=== PATIENT | male | born 1965 | race Caucasian/White ===

== ENCOUNTER 2019-04-20 10:03 | Inpatient (IN) | payer OTHER ==
[~2019-04-20] VITALS: Ht 182.9 cm; Wt 108.3 kg
[2019-04-20] VITALS (49 sets, daily range): BP systolic 90–144; BP diastolic 61–91
[2019-04-20] MEDS ORDERED: SODIUM BICARBONATE 8.4% INJ 50ML SYRINGE ONE ×2 (10:14→10:26)
[2019-04-20] MEDS ORDERED: SODIUM BICARBONATE 8.4 % INJ 50ML VIAL IV ONE ×3 (10:15→10:29)
--- NOTE | 2019-04-20 10:20 | NUR ---
Respiratory note: PT INTUBATED BY MD DEVRIES WITH ETT 8.0 SECURED WITH HOLISTER AT 26CM TEETH. ETT PLACEMENT CONFIRMED BY BILATERAL BREATH SOUNDS AND BILAT CHEST RISE, GOOD COLOR CHANGE ON CO2 DETECTOR. ROSC ACHIEVED. AFTER REVIEWING CXR, WITHREW ETT TO 24CM TEETH. PT PLACED ON VENT V17 PLUGGED INTO RED OUTLET AND PROPER O2 SOURCE WITH AMBU BAG AND MASK AVAILABLE AT BEDSIDE. BREATH SOUNDS BILAT COARSE CRACKLES. SUCTIONED LARGE AMOUNT THICK BLOODY SECRETIONS. SPUTUM SAMPLE COLLECTED AND SENT TO LAB. ALARMS SET AND AUDIBLE. PT SEDATED, UNRESPONSIVE. ABG TO FOLLOW. WILL CONTINUE TO MONITOR.
[2019-04-20] MEDS ORDERED: EPINEPHrine HCL INJECTION 4 MG in SODIUM CHL 0.9% 250 ML IV ONE (10:30)
[2019-04-20] MEDS: SODIUM BICARBONATE 50ML VIAL 150 ML in SOD CHL 0.45% 1,000 ML IV SCH ×3 (10:52→14:32)
[2019-04-20 11:03] LABS: Hematocrit 46.9 % (41.0-53.0); Mean Corpuscular Hemoglobin 31.2 pg (28.0-32.0); Mean Corpuscular Hgb Conc. 31.9 g/dL (32.0-36.0); Mean Corpuscular Volume 97.6 fL (80.0-100.0); Platelet Count (auto) 142 10^3/uL (140-450); Red Blood Cells 4.81 10^6/uL (4.5-5.90); Red Cell Distribution Width 13.9 % (11.8-14.3); White Blood Cell 23.7 10^3/uL (4.4-10.8)
[2019-04-20 11:13] LABS: Basophils % (manual) 0 (0.0-2.0); Blast Cells 0; Metamyelocytes % 0; Myelocytes % 0; Promyelocytes % 0; Reactive Lymphocytes 0
[2019-04-20] MEDS ORDERED: MIDAZOLAM DRIP 50 mg/50mL 50 ML IV ONE (11:17)
--- NOTE | 2019-04-20 11:25 | NUR ---
Respiratory note: VENT CHANGES PER DR. DEVRIES'S ORDERS AFTER REVIEWING ABG RESULTS. PT NOW ON AC 18, 650, +5, 70%. FOLLOW-UP ABG TO FOLLOW AFTER PT RETURNS FROM MENTAL HYGIENE CONSULTANT.
[2019-04-20 11:26] LABS: Albumin 2.5 g/dL (3.4-5.0); Calcium 8.1 mg/dL (8.5-10.1); Magnesium 2.8 mg/dL (1.6-2.6); Potassium 3.6 mmol/L (3.5-5.1)
[2019-04-20 11:33] LABS: Bilirubin, Total 0.4 mg/dL (0.2-1.0); Total Protein 5.5 g/dL (6.4-8.2)
[2019-04-20] MEDS ORDERED: ANGIOMAX 250 MG VIAL IV ONE (11:33)
[2019-04-20] MEDS ORDERED: SODIUM CHL 0.9% 50 ML ONE (11:34)
--- NOTE | 2019-04-20 11:35 | NUR ---
RT Transport Note: Patient transported to CT with OBED ORTIZ. Patient on lead embedded software engineer with alarms set and audible, ambu-bag/mask connected to O2 tank. Patient then transported to [facility] for procedure, with no adverse reaction noted. In laborer plumbing, connected patient to ventilator V3 plugged into red outlet and proper o2 source with ambu bag available at bedside. Transport completed without incident.
[2019-04-20 11:46] LABS: INR 1.37 (0.9-1.15); Partial Thromboplastin Time 39.8 sec (23.64-32.05)
[2019-04-20] MEDS ORDERED: IOHEXOL 350 MG/ML 100ML IJ ONE (11:49)
[2019-04-20] MEDS ORDERED: LIDOCAINE 2%HCL (LOCAL ANESTH.) INJ 20ML MDV ONE (11:49)
[2019-04-20] MEDS: MIDAZOLAM DRIP 50 mg/50mL 50 ML IV SCH ×4 (11:50→22:58)
[2019-04-20] MEDS ORDERED: IODIXANOL 320MG/ML 100ML BTL IV ONE (11:52)
[2019-04-20 12:21] LABS: Band Neutrophils % (manual) 3; Eosinophils % (manual) 1 (0-7); Lymphocytes % (manual) 46 (10.0-50.0); Monocytes % (manual) 8 (0-12)
[2019-04-20] MEDS ORDERED: PROPOFOL 100 ML IV ONE (12:26)
--- NOTE | 2019-04-20 12:45 | NUR ---
RT Transport Note: Patient transported from civil laboratory technician to ICU bed 101. Patient on color television console monitor with alarms set and audible, ambu-bag/mask connected to O2 tank. Upon arrival, patient placed on ventilator V3 plugged into red outlet, proper O2 source, with previous ordered settings. Ambu bag and mask available at bedside. Transport completed without incident. RNs Taryn and Mateusz at bedside. Will continue to monitor.
[2019-04-20] MEDS ORDERED: MORPHINE SULF INJ 2 MG/ML SYRINGE 1ML IV PRN (13:15)
[2019-04-20] MEDS ORDERED: VANCOMYCIN PER PHARMACY 0 MG IV SCH (13:15)
[2019-04-20] MEDS: SODIUM CHLORIDE 0.9% 1,000 ML IV SCH ×2 (13:15→23:15)
[2019-04-20] MEDS ORDERED: FAMOTIDINE INJECTION 40 MG in SODIUM CHL 0.9% 100 ML IV ONE (13:15)
[2019-04-20] MEDS ORDERED: ASPirin 81 mg TAB PO ONE (13:15)
[2019-04-20] MEDS ORDERED: CLOPIDOGREL 300 MG TAB PO ONE (13:15)
[2019-04-20] MEDS ORDERED: NITROGLYCERIN 0.4 MG SL TAB SL PRN (13:15)
[2019-04-20] MEDS ORDERED: MEPERIDINE HCL (25 MG/ML) 1ML VIAL IV PRN (13:30)
[2019-04-20] MEDS ORDERED: ASPirin-EC 81 mg tab PO ONE (13:38)
[2019-04-20] MEDS ORDERED: CLOPIDOGREL BISULFATE 75 MG TAB ONE (13:38)
[2019-04-20] MEDS ORDERED: FAMOTIDINE (10MG/ML) 2ML VL IV ONE (13:38)
[2019-04-20] MEDS: NOREPINEPHRINE 8 MG/250ML KIT 250 ML IV SCH (13:40)
[2019-04-20] MEDS ORDERED: DEXTROSE (50%) 50ML SYRG IV PRN (13:45)
--- NOTE | 2019-04-20 13:45 | NUR ---
MEHRANAR report received from OBED Mosqueda in starch factory laborer. See PX and interventions. Patient intubated and sedated. Addendum: 04/20/19 at 1839 by Taryn Caballero RN Patient received at 1350 from starch factory laborer. Addendum: 04/22/19 at 0743 by Taryn Caballero RN LEFT FEMORAL SITE ASSESSED AND NO HEMATOMA. PERCLOSE SUTURE COVERED WITH 2X2, SKIN SOFT WARM, DRY AND INTACT.
[2019-04-20] MEDS ORDERED: PIPERACILLIN-TAZOB 3.375GM 100 ML IV ONE (14:00)
--- NOTE | 2019-04-20 14:00 | NUR ---
Mehul ROMANO - admitted patient to the ICU. Several orders placed.
--- NOTE | 2019-04-20 14:15 | NUR ---
Place patient on Therapeutic hypothermia goal temp 32-34 degress Celcius. Will monitor temp.
--- NOTE | 2019-04-20 15:15 | NUR ---
AND DAUGHTER AT BEDSIDE- WENT OVER PLAN OF CARE FOR PATIENT. WENT OVER TREATMENTS, ie. HYPOTHERMIA AND ALL MEDICATIONS. VERBALIZED UNDERSTANDING.
[2019-04-20] MEDS: PROPOFOL 100 ML IV SCH ×3 (15:28→22:58)
[2019-04-20] MEDS ORDERED: EPINEPHrine HCL 250 ML IV ONE (15:35)
[2019-04-20] MEDS: ATRACURIUM BESYLATE 1,000 MG in D5W 5% 150 ML IV SCH (15:37)
--- NOTE | 2019-04-20 15:45 | NUR ---
Patient started on Atracurium for shivering -once shivering stops (keep on lowest dose possible).
--- NOTE | 2019-04-20 17:05 | NUR ---
Dr. Hilliard at bedside- spoke with family. CT head ordered for the morning.
--- NOTE | 2019-04-20 18:00 | NUR ---
TRAIN OF 4 PERFORMED FOR PATIENT: INITIALLY 4 TWITCHES - WENT UP UNTIL HE STOPPED SHIVERING, THEN WENT DOWN AGAIN SLOWLY. KEPT AT 3MCG KG/MIN LOWEST DOSE TO KEEP COMFORTABLE. PATIENT VS'S STABLE, TRENDING DOWN ON THE EPINEPHRINE. MAXED SEDATED ON DIPRIVAN AND VERSED FOR COMFORT.
[2019-04-20] MEDS: InsuLIN REG 1unit/0.01ml Soln (100units/ml) SC SCH ×2 (18:19→23:52)
[2019-04-20] MEDS: PIPERACILLIN-TAZOB 3.375GM 100 ML IV SCH ×2 (18:19→23:52)
[2019-04-20] MEDS: ACCU-CHEK COMFORT CURVE STRIP VI SCH ×2 (18:20→23:52)
[2019-04-20] MEDS: VANCOMYCIN 1,500 MG in D5W 5% 250 ML IV SCH (18:24)
--- NOTE | 2019-04-20 19:15 | NUR ---
OPEN ASSUMED CARE, FULL ASSESSMENT DONE; SEE INTERVENTIONS. THERAPEUTIC HYPOTHERMIA IN PROGRESS PER PROTOCOL, PT TEMP 33.1 CELSIUS. SEDATED ON PROPOFOL, VERSED, AND ATRACURIUM PER IV SPREADSHEET. TRAIN OF FOUR ASSESSED WITH 2/4 FACIAL TWITCHES NOTED; SEE IV SPREADSHEET FOR TITRATIONS. RIGHT FEM TLC ZOLL CATHETER IN PLACE, RIGHT AC 20 G PATENT AND INTACT. PERIPHERAL IVs X 2 DCd WITH CATHETER TIPS INTACT. LEFT GROIN ANGIO SITE ASYMPTOMATIC, RADIAL AND PEDAL PULSES STRONG AND PALPABLE. EPINEPHRINE GTT INFUSING PER IV SPREADSHEET. NS AND SODIUM BICARB GTT ALSO INFUSING PER IV SPREADSHEET. GARCIA DRAINING CLEAR YELLOW URINE TO GRAVITY, FLEXI-SEAL DRAINING LIQUID BROWN-MAROON STOOL TO GRAVITY. ORAL CARE AND REPOSITIONING DONE. VITAL SIGNS STABLE. CONTINUE CARE. Addendum: 04/20/19 at 2156 by Una Serrato RN NO SEIZURE ACTIVITY NOTED.
--- NOTE | 2019-04-20 19:23 | NUR ---
BEDSIDE REPORT GIVEN TO OBED FRANCIS.
--- NOTE | 2019-04-20 20:35 | NUR ---
FAMILY PT'S AND SON AT BEDSIDE, ALL QUESTIONS/CONCERNS ADDRESSED.
--- NOTE | 2019-04-20 21:20 | NUR ---
SEDATION VACATION HELD AT THIS TIME PT REMAINS ON PARALYTIC.
[2019-04-20] MEDS: FAMOTIDINE (10MG/ML) 2ML VL IV SCH (21:43)
--- NOTE | 2019-04-20 22:11 | NUR ---
TEMP CORE TEMP MAINTAINING 33.0-33.1 DEG CELSIUS. VITAL SIGNS STABLE WITH EPI CONTINUING TO INFUSE PER IV SPREADSHEET. FAMILY REMAINS AT BEDSIDE.
[2019-04-20] MEDS ORDERED: SODIUM BICARBONATE 8.4% INJ 50ML SYRINGE IV ONE (22:44)
[2019-04-20] MEDS ORDERED: AMIODARONE HCL (50 MG/ ML) 3 ML VIAL IV ONE (22:44)
[2019-04-20] MEDS ORDERED: EPINEPHrine HCL 1 MG/10 ML SYRG IV ONE (22:44)
[2019-04-20] MEDS ORDERED: CALCIUM CHLOR(10%) 100MG/ML 10ML SYRINGE IV ONE (22:44)
--- NOTE | 2019-04-20 23:08 | NUR ---
TRAIN OF FOUR TOF ASSESSED AT 10 mA; 2/4 FACIAL TWITCHES NOTED. NO SHIVERING OR SEIZURE ACTIVITY NOTED. ATRACURIUM CONTINUES TO INFUSE AT 3 MCG/KG/MIN PER IV SPREADSHEET. FAMILY REMAINS AT BEDSIDE; EDUCATION PROVIDED REGARDING TOF AND PARALYTIC, ALL QUESTIONS/CONCERNS ADDRESSED.
[2019-04-21] VITALS (106 sets, daily range): BP systolic 95–125; BP diastolic 50–76
[2019-04-21] MEDS ORDERED: EPINEPHrine HCL 250 ML IV ONE (01:05)
--- NOTE | 2019-04-21 01:25 | NUR ---
LEFT BULL I.O DCd, PRESSURE DSG APPLIED.
--- NOTE | 2019-04-21 03:15 | NUR ---
TRAIN OF FOUR TOF ASSESSED AT 10 mA; 4/4 FACIAL TWITCHES NOTED. NO SHIVERING OR SEIZURE ACTIVITY NOTED. ATRACURIUM CONTINUES TO INFUSE AT 3 MCG/KG/MIN PER IV SPREADSHEET.
[2019-04-21] MEDS: EPINEPHrine HCL 250 ML IV SCH (03:28)
[2019-04-21] MEDS: SODIUM BICARBONATE 50ML VIAL 150 ML in SOD CHL 0.45% 1,000 ML IV SCH (04:00)
[2019-04-21 04:07] LABS: Basophils # (auto) 0 uL; Eosinophils # (auto) 0 uL; Hematocrit 44.9 % (41.0-53.0); Hemoglobin 14.7 g/dL (13.5-17.5); Lymphocytes % (auto) 5.8 % (10.0-50.0); Mean Corpuscular Hemoglobin 31.2 pg (28.0-32.0); Mean Corpuscular Hgb Conc. 32.7 g/dL (32.0-36.0); Mean Corpuscular Volume 95.2 fL (80.0-100.0); Monocytes # (auto) 1.1 uL; Monocytes % (auto) 6.6 % (0.0-12.0); Neutrophils % (auto) 87.6 % (37.0-80.0); Platelet Count (auto) 183 10^3/uL (140-450); Red Blood Cells 4.72 10^6/uL (4.5-5.90); Red Cell Distribution Width 13.3 % (11.8-14.3); White Blood Cell 17.1 10^3/uL (4.4-10.8)
[2019-04-21 04:44] LABS: Albumin 2.7 g/dL (3.4-5.0); BUN/Creatinine Ratio 9.4; Calcium 7.3 mg/dL (8.5-10.1)
[2019-04-21 04:46] LABS: Bilirubin, Total 0.6 mg/dL (0.2-1.0); Total Protein 5.7 g/dL (6.4-8.2)
[2019-04-21 04:50] LABS: Potassium 2.2 mmol/L (3.5-5.1)
--- NOTE | 2019-04-21 04:53 | NUR ---
HOSPITALIST PAGED REGARDING AM LABS.
[2019-04-21] MEDS ORDERED: VANCOMYCIN 1GM/250ML 0 ML IV ONE (05:15)
--- NOTE | 2019-04-21 05:15 | NUR ---
HOSPITALIST/FAMILY ORDERS RECEIVED FOR POTASSIUM REPLACEMENT, SEE EMAR. UPDATE GIVEN TO PT'S AFTER PASSWORD PROVIDED.
[2019-04-21] MEDS: ACCU-CHEK COMFORT CURVE STRIP VI SCH ×5 (05:52→23:56)
[2019-04-21] MEDS: PIPERACILLIN-TAZOB 3.375GM 100 ML IV SCH ×4 (05:52→23:56)
[2019-04-21] MEDS: InsuLIN REG 1unit/0.01ml Soln (100units/ml) SC SCH ×5 (05:52→23:56)
[2019-04-21] MEDS: VANCOMYCIN 1,500 MG in D5W 5% 250 ML IV SCH ×2 (05:52→17:11)
[2019-04-21] MEDS: POTASSIUM CHL 20MEQ/100ML 100 ML IV SCH ×6 (05:52→18:32)
--- NOTE | 2019-04-21 07:10 | NUR ---
REPORT CARE ENDORSED TO OBED CONTRERAS.
--- NOTE | 2019-04-21 07:22 | NUR ---
TRAIN OF FOUR 2/4 TWITCHES ON 5 MA. PATIENT CURRENTLY ON ATRACURIUM AT 3 MCG/KG/MIN
--- NOTE | 2019-04-21 07:22 | NUR ---
SHIFT OPENING NOTE PATIENT ON MECHANICAL VENTILATOR, SEDATED WITH PROPOFOL, VERSED, AND ATRACURIUM, NO COUGH OR GAG REFLEX, PUPILS 2 EQUAL ROUND, NON REACTIVE TO LIGHT, LUNGS CLEAR AND DIMINISHED THROUGHOUT. RUST SECRETIONS OROPHARYNX, ABDOMEN ROUND AND SOFT, WITH FLEXISEAL WITH MINIMAL AMOUNTS OF BROWN LIQUID STOOL, OGT CLAMPED AT THIS TIME. GARCIA CATHETER DRAINING CLEAR, PALE URINE WITH BAG HUNG BELOW BLADDER, FREE OF KINKS, SC'DS BILATERALLY TO LOWER EXTREMITIES, WITH PALPABLE PEDAL PULSES BILATERALLY. RIGHT GROIN SITE BENIGN
[2019-04-21] MEDS ORDERED: SODIUM BICARBONATE 50ML VIAL 150 ML in SOD CHL 0.45% 1,000 ML IV SCH (07:30)
--- NOTE | 2019-04-21 07:30 | NUR ---
PT UNSTABLE FOR TRANSFER TO CT AT THIS TIME.
[2019-04-21] MEDS: MIDAZOLAM DRIP 50 mg/50mL 50 ML IV SCH ×4 (07:49→18:04)
--- NOTE | 2019-04-21 08:05 | NUR ---
FAMILY AND SON AT BEDSIDE. UPDATED ON PATIENT STATUS. ALL QUESTIONS AND CONCERNS ADDRESSED AT THIS TIME
--- NOTE | 2019-04-21 09:05 | NUR ---
DR. BROCK AT BEDSIDE
--- NOTE | 2019-04-21 09:05 | NUR ---
CT HEAD PER DR. BROCK HOLD CT HEAD AT THIS TIME MAY DO CT HEAD 04/22 WHEN PATIENT STABILIZED
[2019-04-21] MEDS ORDERED: DEXTROSE (50%) 50ML SYRG IV PRN (09:30)
[2019-04-21] MEDS ORDERED: SOD CHL 0.45% 1,000 ML IV SCH (09:30)
[2019-04-21] MEDS: ASPirin 81 mg TAB PO SCH (09:41)
[2019-04-21] MEDS: FAMOTIDINE (10MG/ML) 2ML VL IV SCH ×2 (09:41→22:00)
[2019-04-21] MEDS: CLOPIDOGREL BISULFATE 75 MG TAB PO SCH (09:42)
--- NOTE | 2019-04-21 10:10 | NUR ---
SEDATION VACATION HELD AT THIS TIME Addendum: 04/21/19 at 1011 by Jonathon Fonseca RN Amended: Links added.
[2019-04-21 12:59] LABS: BUN/Creatinine Ratio 10.7; Calcium 7.5 mg/dL (8.5-10.1)
[2019-04-21 13:37] LABS: Potassium 2.2 mmol/L (3.5-5.1)
[2019-04-21] MEDS: NOREPINEPHRINE 8 MG/250ML KIT 250 ML IV SCH (13:40)
[2019-04-21] MEDS ORDERED: POTASSIUM CHL 20MEQ/100ML 300 ML IV ONE (13:55)
--- NOTE | 2019-04-21 13:58 | NUR ---
DR. HAYS AT BEDSIDE
[2019-04-21] MEDS: SOD CHL 0.45% 1,000 ML IV SCH (14:00)
--- NOTE | 2019-04-21 14:07 | NUR ---
URINE SENT VIA BULLET TO LAB
--- NOTE | 2019-04-21 14:30 | NUR ---
REWARMING PHASE INITIATED PER PROTOCOL
--- NOTE | 2019-04-21 14:30 | NUR ---
Respiratory note: OBED LEI ASKED FOR MEDICATION TO BE WITHHELD, DUE TO PATIENT BEING COMBATIVE. RN DIDN'T WANT PATIENT TO BE AWAKEN, SINCE HE HAD JUST GOT HIM CALM.
[2019-04-21 14:48] LABS: Alcohol, Urine < 3.0 mg/dL (0-5); Amphetamine Screen, Urine NEGATIVE (NEGATIVE); Barbiturate Scree,Urine NEGATIVE (NEGATIVE); Benzodiazephine Screen, Urine POSITIVE (NEGATIVE); Cannabinoid Screen, Urine NEGATIVE (NEGATIVE); Cocaine Screen, Urine NEGATIVE (NEGATIVE); Opiate Scree,Urine NEGATIVE (NEGATIVE); Phencyclidine Screen, Urine NEGATIVE (NEGATIVE)
[2019-04-21 14:54] LABS: Urine Bacteria NONE SEEN /hpf (None Seen); Urine Blood TRACE /uL (Negative); Urine Mucus FEW (None Seen); Urine WBC 8 /hpf (0 - 3)
[2019-04-21] MEDS: ATRACURIUM BESYLATE 1,000 MG in D5W 5% 150 ML IV SCH (14:57)
[2019-04-21] MEDS: PROPOFOL 100 ML IV SCH ×3 (15:02→23:56)
--- NOTE | 2019-04-21 17:49 | NUR ---
PARTIAL LINEN CHANGE PERFORMED AT THIS TIME
--- NOTE | 2019-04-21 19:15 | NUR ---
OPEN ASSUMED CARE, FULL ASSESSMENT DONE; SEE INTERVENTIONS. PT. IN RE-WARMING PHASE OF THERAPEUTIC HYPOTHERMIA PROTOCOL, CURRENT CORE TEMP 94.2 VIA ZOLL CATHETER TO RIGHT FEM. DIPRIVAN, VERSED, ATRACURIUM, AND EPINEPHRINE INFUSING PER IV SPREADSHEET. WILL BEGIN TO WEAN PARALYTIC WHEN GOAL CORE TEMP IS MET PER MD RECOMMENDATION, TRAIN OF FOUR PERFORMED WITH 2/4 FACIAL TWITCHES ON 5 mA. VITAL SIGNS STABLE. ORAL CARE AND REPOSITIONING DONE. FAMILY AT BEDSIDE, ALL QUESTIONS/CONCERNS ADDRESSED. CONTINUE CARE.
--- NOTE | 2019-04-21 19:18 | NUR ---
REPORT GIVEN TO ALVERTO CLAY TO ASSUME CARE
--- NOTE | 2019-04-21 21:02 | NUR ---
SEDATION VACATION HELD AT THIS TIME PT REMAINS ON PARALYTIC.
[2019-04-22] VITALS (102 sets, daily range): BP systolic 95–133; BP diastolic 54–84
--- NOTE | 2019-04-22 01:15 | NUR ---
CORE TEMP NOW 96.8, ZOLL MONITOR TURNED OFF. WILL BEGIN TO WEAN ATRACURIUM. VITAL SIGNS STABLE.
[2019-04-22] MEDS: EPINEPHrine HCL 250 ML IV SCH ×2 (03:00→07:35)
[2019-04-22] MEDS: SOD CHL 0.45% 1,000 ML IV SCH (03:00)
[2019-04-22] MEDS: ACCU-CHEK COMFORT CURVE STRIP VI SCH ×5 (04:00→20:21)
[2019-04-22] MEDS: InsuLIN REG 1unit/0.01ml Soln (100units/ml) SC SCH ×5 (04:00→20:00)
[2019-04-22 05:39] LABS: Albumin 2.5 g/dL (3.4-5.0); Bilirubin, Total 0.7 mg/dL (0.2-1.0); Calcium 7.3 mg/dL (8.5-10.1); Potassium 3.1 mmol/L (3.5-5.1); Total Protein 4.9 g/dL (6.4-8.2)
[2019-04-22] MEDS: PIPERACILLIN-TAZOB 3.375GM 100 ML IV SCH ×3 (05:44→16:26)
[2019-04-22] MEDS: VANCOMYCIN 1,500 MG in D5W 5% 250 ML IV SCH ×2 (05:44→18:03)
--- NOTE | 2019-04-22 06:17 | NUR ---
FAMILY SPOKE WITH PT'S AFTER PASSWORD PROVIDED, UPDATE GIVEN.
[2019-04-22 06:25] LABS: Basophils # (auto) 0 uL; Basophils % (auto) 0.3 % (0.0-2.0); Eosinophils # (auto) 0 uL; Eosinophils % (auto) 0.2 % (0.0-7.0); Hematocrit 38.5 % (41.0-53.0); Hemoglobin 12.7 g/dL (13.5-17.5); Lymphocytes # (auto) 1.1 uL; Lymphocytes % (auto) 6.2 % (10.0-50.0); Mean Corpuscular Hgb Conc. 33.1 g/dL (32.0-36.0); Mean Corpuscular Volume 93.8 fL (80.0-100.0); Monocytes # (auto) 0.8 uL; Monocytes % (auto) 4.7 % (0.0-12.0); Neutrophils # (auto) 15.4 uL; Neutrophils % (auto) 88.6 % (37.0-80.0); Platelet Count (auto) 146 10^3/uL (140-450); Red Blood Cells 4.11 10^6/uL (4.5-5.90); Red Cell Distribution Width 13.5 % (11.8-14.3); White Blood Cell 17.4 10^3/uL (4.4-10.8)
--- NOTE | 2019-04-22 07:07 | NUR ---
REPORT CARE ENDORSED TO OBED CONTRERAS
--- NOTE | 2019-04-22 08:05 | NUR ---
FAMILY , DAUGHTER, AND SON AT BEDSIDE. UPDATED ON PATIENT STATUS. ALL QUESTIONS AND CONCERNS ADDRESSED AT THIS TIME
[2019-04-22] MEDS: PROPOFOL 100 ML IV SCH ×4 (08:22→21:27)
--- NOTE | 2019-04-22 08:34 | NUR ---
DR. BORCK AT BEDSIDE
[2019-04-22] MEDS ORDERED: POTASSIUM CHL 20MEQ/100ML 100 ML IV ONE ×2 (09:23→09:30)
[2019-04-22] MEDS: CLOPIDOGREL BISULFATE 75 MG TAB PO SCH (09:28)
[2019-04-22] MEDS: FAMOTIDINE (10MG/ML) 2ML VL IV SCH ×2 (09:28→21:26)
[2019-04-22] MEDS: ASPirin 81 mg TAB PO SCH (09:28)
--- NOTE | 2019-04-22 11:13 | NUR ---
DESIREE LARA AT BEDSIDE ORDERS RECEIVED
[2019-04-22] MEDS ORDERED: POTASSIUM EFFERVESENT TAB 25 MEQ PO ONE (11:15)
--- NOTE | 2019-04-22 11:32 | NUR ---
V TACH 16 BEAT, COSMETIC CONSULTANT LARA AT BEDSIDE. POTASSIUM AND MAGNESIUM REPLACEMENT TO BE STARTED
[2019-04-22] MEDS ORDERED: POTASSIUM EFFERVESENT TAB 25 MEQ ONE (11:46)
[2019-04-22] MEDS: MAGNESIUM SULFATE 1GM/100ML 100 ML IV SCH ×2 (11:48→13:03)
[2019-04-22] MEDS: POTASSIUM CHL 20MEQ/100ML 100 ML IV SCH ×2 (11:48→13:48)
--- NOTE | 2019-04-22 12:28 | NUR ---
Nutrition Assessment Notes please see attached link for complete assessment Est. Needs ABW [id number] kcal (23-25 kcal/kgBW), 91-100 gms pro (1.0-1.1 gms/kgBW). Will continue to monitor pertinent labs and reassess nutrient need prn Addendum: 04/22/19 at [address] Amended: Links added.
--- NOTE | 2019-04-22 12:30 | NUR ---
WOUND CARE NOTE: IN TO SEE PATIENT AT THIS TIME FOR SKIN INTEGRITY. PATIENT WAS ADMITTED TO [facility] WITH DIAGNOSIS OF CARDIOPULMONARY RESUSCITATION FOR CARDIAC ARREST. CURRENT ERIKA SCORE IS 11. PATIENT IS INTUBATED, SEDATED, SPOUSE AT BEDSIDE. UNABLE TO TURN PATIENT AT THIS TIME PER BEDSIDE NURSE, DIANE, WHO STATES PATIENT TO UNSTABLE TO TURN AT THIS TIME. ABLE TO ASSESS SKIN TO MEDIAL STERNUM, WHERE THERE IS A 1ST DEGREE CONTACT BURN ACQUIRED DURING CPR. WOUND PHOTO TAKEN AT THIS TIME FOR REFERENCE. NO OPEN OR DRAINING/WEEPING SKIN NOTED. SKIN IS BRIGHT RED, BLANCHES. RECOMMEND: FREQUENT TURN SCHEDULE Q 2 HOURS, PRN CONDITION PERMITS, WITH PRESSURE REDISTRIBUTION USING PILLOWS/WEDGES, BID/PRN APPLICATION WITH MOISTURE BARRIER CREAM/OPTIFOAM GENTLE SACRAL DRESSING, DIETARY CONSULT FOR LOW ERIKA, CONTINUED MONITORING BY WOUND CARE TEAM. SKIN/WOUND CARE PLAN IMPLEMENTED AT THIS TIME. Addendum: 04/22/19 at 1535 by Yvonne Dumont RN Amended: Links added.
--- NOTE | 2019-04-22 12:30 | NUR ---
TEMP 100.1 COOLING MEASURES APPLIED
--- NOTE | 2019-04-22 13:25 | NUR ---
[facility] PATIENT IN [facility]. CLASSIFIER TENDER MARCO NOTIFIED, EKG DONE AND PLACED IN CHART
--- NOTE | 2019-04-22 13:35 | NUR ---
ECHO AT BEDSIDE
[2019-04-22] MEDS: NOREPINEPHRINE 8 MG/250ML KIT 250 ML IV SCH (13:40)
--- NOTE | 2019-04-22 13:56 | NUR ---
DR. HAYS AT BEDSIDE
[2019-04-22] MEDS ORDERED: Glucerna 1.2 Cal 1Liter BOTTLE GT SCH (14:00)
[2019-04-22] MEDS: SOD CHL 0.45% WITH 20MEQ KCL 1,000 ML IV SCH (15:03)
[2019-04-22] MEDS: MIDAZOLAM DRIP 50 mg/50mL 50 ML IV SCH (15:04)
--- NOTE | 2019-04-22 15:55 | NUR ---
Respiratory note: ADVANCED ETT 2CM FROM TO 28. RN DIANE INFORMED.CHANGED ALINA.
--- NOTE | 2019-04-22 19:30 | NUR ---
Opening Shift Note Received pt on mechanical ventilator sedated on versed at 7mg/hr and propofol at 40 mcg/hr. Pt has hypoactive cough/gag. No response to painful stimuli. Pupils are 3 and sluggish. Full assessment done see interventions. Rust colored secretions suctioned out of ET tube. Sinus tachycardia on bedside monitor hr of 103. Cooling blanket on and in place. Rectal temperature 100.4. Right femoral TLC ZOLL catheter in place. Left groin angio site benign. Pulses strong and palpable distal to site. Winston catheter in place draining to gravity, patent and free of kinks, secured below bladder. Flexi seal in place draining liquid brown stool. Glucerna infusing through OG tube. <5 residuals aspirated. Pt tolerating TF well. All alarms on and audible. Pt in full view of RN. VSS. Will continue to monitor closely.
--- NOTE | 2019-04-22 19:31 | NUR ---
REPORT GIVEN TO TOM CLAY TO ASSUME CARE
--- NOTE | 2019-04-22 20:20 | NUR ---
Family Pt's and son at bedside. All questions and concerns addressed at this time.
[2019-04-23] VITALS (103 sets, daily range): BP systolic 105–163; BP diastolic 59–103
--- NOTE | 2019-04-23 | NUR ---
Residuals Less than 5cc's of TF residual when aspirated. Will continue at 30 cc's an hour.
[2019-04-23] MEDS: PROPOFOL 100 ML IV SCH ×6 (00:36→20:50)
[2019-04-23] MEDS: PIPERACILLIN-TAZOB 3.375GM 100 ML IV SCH ×4 (00:36→19:58)
--- NOTE | 2019-04-23 02:00 | NUR ---
Temperature Pt 99.2 at this time. Cooling blanket taken off pt and on standby.
[2019-04-23 03:55] LABS: Basophils # (auto) 0 uL; Basophils % (auto) 0.2 % (0.0-2.0); Eosinophils # (auto) 0 uL; Eosinophils % (auto) 0.2 % (0.0-7.0); Hematocrit 36.5 % (41.0-53.0); Hemoglobin 12.2 g/dL (13.5-17.5); Lymphocytes # (auto) 1.2 uL; Lymphocytes % (auto) 7.2 % (10.0-50.0); Mean Corpuscular Hemoglobin 31.2 pg (28.0-32.0); Mean Corpuscular Hgb Conc. 33.4 g/dL (32.0-36.0); Mean Corpuscular Volume 93.6 fL (80.0-100.0); Monocytes # (auto) 0.5 uL; Neutrophils % (auto) 89.4 % (37.0-80.0); Nucleated Red Blood Cells % 0.1 %; Platelet Count (auto) 130 10^3/uL (140-450); Red Cell Distribution Width 13.9 % (11.8-14.3); White Blood Cell 16.8 10^3/uL (4.4-10.8)
[2019-04-23] MEDS: InsuLIN REG 1unit/0.01ml Soln (100units/ml) SC SCH ×6 (04:00→20:00)
[2019-04-23] MEDS: ACCU-CHEK COMFORT CURVE STRIP VI SCH ×6 (04:18→20:00)
[2019-04-23 04:21] LABS: Albumin 2.4 g/dL (3.4-5.0); BUN/Creatinine Ratio 12.5; Calcium 7.3 mg/dL (8.5-10.1); Potassium 4.5 mmol/L (3.5-5.1)
[2019-04-23 04:31] LABS: Bilirubin, Total 0.7 mg/dL (0.2-1.0); Total Protein 5.1 g/dL (6.4-8.2)
--- NOTE | 2019-04-23 04:45 | NUR ---
Cares Full CHG wipe bath given and linen change at this time. Pt tolerated well. Skin integrity assessed for any changes, none noted. Pt repositioned for comfort and pressure points offloaded. Oral care done. Suction canisters changed.
[2019-04-23] MEDS: MIDAZOLAM DRIP 50 mg/50mL 50 ML IV SCH ×2 (05:34→19:56)
[2019-04-23] MEDS: VANCOMYCIN 1,500 MG in D5W 5% 250 ML IV SCH ×2 (06:11→18:28)
--- NOTE | 2019-04-23 07:30 | NUR ---
MD VISIT PT SEEN AND EXAMINED BY DR BROCK. HE IS AWARE OF THE CT HEAD REPORT. MADE HIM AWARE THE PT'S IS SUPPOSED TO BE ARRIVING AT 0800 ANS WAS WANTING TO KNOW THE RESULTS OF THE CT SCAN.
--- NOTE | 2019-04-23 07:37 | NUR ---
REPORT REPORT RECEIVED AND INTO THE BEDSIDE TO CHECK ON PT. ON THE VENTILATOR AND SEDATED ON VERSED AND DIPRIVAN. VSS. CONTINUE TO MONITOR.
--- NOTE | 2019-04-23 07:37 | NUR ---
End of Shift Report Report given and care endorsed to OBED Ashley.
--- NOTE | 2019-04-23 07:47 | NUR ---
ASSESSMENT PT RESTING IN BED WITH EYES OPEN. NO RESPONSE TO VERBAL OR PAINFUL STIMULI BUT PT IS SEDATED ON VERSED AND DIPRIVAN. PUPILS 2 AND VERY SLUGGISH. NO SPONTANEOUS MOVEMENT NOTED. ON THE VENTILATOR WITH SETTINGS: 8 FR ETT/28 AT THE LIP, AC 18, TV 600, 30% AND PEEP OF 5. LUNGS CLEAR THROUGHOUT. SUCTIONED FOR SMALL AMOUNT OF THIN CLEAR FLUID VIA ETT AND ORALLY. TELE SR [address] IN LEAD II AND ELEVATED ST IN LEAD V. PALPABLE PULSES TO ALL EXTREMITIES. SCDS TO BLE. SLIGHT NON PITTING EDEMA NOTED TO LEFT HAND. ABD SOFT WITH HYPOACTIVE BOWEL SOUNDS. OGT WITH + PLACEMENT AND NO RESIDUAL AD GLUCERNA 1.2 INFUSING AT 30 ML/HR. FLEXISEAL IN PLACE WITH SMALL AMOUNT OF THIN LIQUID BROWN STOOL IN THE TUBING. TURNED FOR COMFORT TO HIS LEFT SIDE. OPTIFOAM IN PLACE TO SACRUM, SITE CLEAR. PT WITH RED/PINK SKIN NOTED TO MIDSTERNAL AREA, PER REPORT, BURN SUSTAINED FROM PADS WHEN PT SHOCKED DURING RESUSCITATION. RAILS UP X4 AND BED IN LOW POSITION. CONTINUE TO MONITOR.
--- NOTE | 2019-04-23 08:05 | NUR ---
FAMILY/MD BROUGHT PTS INTO THE UNIT AND SHE SPOKE WITH DR BROCK. HE UPDATED HER ON THE CT HEAD RESULTS AND POOR PROGNOSIS.
--- NOTE | 2019-04-23 08:30 | NUR ---
INTO BEDSIDE AND FOUND SOBBING AT THE BEDSIDE. SPOKE WITH HER AND TRIED TO COMFORT HER. FRIEND THEN INTO THE ROOM AND SITTING WITH .
--- NOTE | 2019-04-23 09:45 | NUR ---
LUNGS REMAIN CLEAR. REMAINS SEDATED WHILE ON THE VENTILATOR. TOLERATING FEEDING WITH NO RESIDUAL. TURNED FOR COMFORT. FAMILY AT THE BEDSIDE.
[2019-04-23] MEDS: ASPirin 81 mg TAB PO SCH (09:59)
[2019-04-23] MEDS: FAMOTIDINE (10MG/ML) 2ML VL IV SCH ×2 (09:59→22:00)
[2019-04-23] MEDS: CLOPIDOGREL BISULFATE 75 MG TAB PO SCH (09:59)
[2019-04-23] MEDS: SOD CHL 0.45% WITH 20MEQ KCL 1,000 ML IV SCH ×2 (10:57→16:40)
--- NOTE | 2019-04-23 12:00 | NUR ---
TURNED FOR COMFORT. ORAL CARE PROVIDED. ACCUCHECK OF 105 WITH NO COVERAGE NEEDED.
[2019-04-23] MEDS: NOREPINEPHRINE 8 MG/250ML KIT 250 ML IV SCH (13:40)
--- NOTE | 2019-04-23 13:50 | NUR ---
MD VISIT DR HAYS HERE AND EXAMINED PT. I UPDATED HIM ON THE PT'S CURRENT CONDITION AND THAT DR BROCK HAD SPOKEN TO THE PT'S THIS MORNING REGARDING PT'S CT HEAD RESULTS AND POOR PROGNOSIS. HE SPOKE WITH THE FAMILY AND PT'S IS MAKING ARRANGEMENTS FOR FAMILY MEMBERS TO COME FROM OUT OF STATE TO SEE THE PT.
--- NOTE | 2019-04-23 16:00 | NUR ---
ACCUCHECK OF 108 WITH NO COVERAGE NEEDED. REPOSITIONED PT FOR COMFORT.
--- NOTE | 2019-04-23 16:50 | NUR ---
[facility] SPOKE WITH [facility] AND PROVIDED WITH INFORMATION REGARDING PT'S S/P CPR STATUS. REFERENCE # [id number]. THEY ASKED THAT WE CONTACT THEM IF FAMILY DECIDES FOR A TERMINAL WEAN. .
--- NOTE | 2019-04-23 18:15 | NUR ---
IN TO ADMINISTER IV VANCO AND REASSESS AND REPOSITION PT. SOME FAMILY MEMBERS AT THE BEDSIDE SOBBING. I ASKED IF SHE WOULD LIKE ME TO GIVE THEM SOME TIME AND SHE SAID YES. WILL CHECK BACK IN A FEW MINUTES.
--- NOTE | 2019-04-23 19:20 | NUR ---
open note assumed care of male patient sedated and orally intubated. pt on versed of 5mg/hr, propofol 30mcg/kg/min. pt connected to icu monitors, sr 86. pt does not grimace is unarousable no response to stimuli. no response to turns or oral car. pt does not have cough or gag response. pupils are uneven and fixed. R pupil 4 L pupil 2, Md notified. pt appears to be resting in bed, respirations clear and unlabored O2 95%. pt does not open eyes and does not follow commands. pt has ogt. pt receiving Glucerna feeding at 30/ml/hr. pt has triple lumen cath to R femoral groin,iv is patent, flushes, no ss of redness or swelling, dressing clean and dry. pt also has R ac 18G iv is patent flushes no ss of redness or swelling, dressing clean and dry. pt has Winston hanging below bladder, patent draining clear yellow urine to gravity. pillows placed under patients eitan prominences to offload pressure and for patients comfort and safety. no indication of pain observed at this time. Bed in lowest position, wheels locked, side rails up x2, all alarms on and audible. pt in full view of nurses station. will continue to care for and monitor.
--- NOTE | 2019-04-23 20:00 | NUR ---
pt pupils uneven and fixed. R pupil 4 and fixed, Left pupil [address] allan in unit and notified.
--- NOTE | 2019-04-23 20:00 | NUR ---
ACCUCHECK OF 113 WITH NO COVERAGE NEEDED. REPOSITIONED PT FOR COMFORT.
--- NOTE | 2019-04-23 20:00 | NUR ---
REPORT GIVEN TO NIGHT RNANGEL. BEDSIDE CHECK DONE.
[2019-04-24] VITALS (102 sets, daily range): BP systolic 110–157; BP diastolic 63–92
[2019-04-24] MEDS: PIPERACILLIN-TAZOB 3.375GM 100 ML IV SCH ×4 (01:21→17:51)
[2019-04-24] MEDS: EPINEPHrine HCL 250 ML IV SCH (02:48)
[2019-04-24] MEDS: ACCU-CHEK COMFORT CURVE STRIP VI SCH ×6 (04:00→20:00)
[2019-04-24] MEDS: InsuLIN REG 1unit/0.01ml Soln (100units/ml) SC SCH ×6 (04:00→20:00)
--- NOTE | 2019-04-24 04:00 | NUR ---
hygiene bed bath provided, complete linen change preformed, skin assessed for integrity changes, none noted. suction canisters and tubing changed. patient repositioned for comfort and safety, pt tolerates turns and cares. will continue to care for and monitor.
[2019-04-24 04:03] LABS: Basophils # (auto) 0 uL; Basophils % (auto) 0.1 % (0.0-2.0); Eosinophils # (auto) 0.2 uL; Eosinophils % (auto) 1.2 % (0.0-7.0); Hematocrit 34.7 % (41.0-53.0); Hemoglobin 11.7 g/dL (13.5-17.5); Lymphocytes % (auto) 7.4 % (10.0-50.0); Mean Corpuscular Hemoglobin 31.5 pg (28.0-32.0); Mean Corpuscular Hgb Conc. 33.7 g/dL (32.0-36.0); Mean Corpuscular Volume 93.4 fL (80.0-100.0); Monocytes # (auto) 0.5 uL; Monocytes % (auto) 3.8 % (0.0-12.0); Neutrophils # (auto) 11.3 uL; Neutrophils % (auto) 87.5 % (37.0-80.0); Platelet Count (auto) 120 10^3/uL (140-450); Red Blood Cells 3.72 10^6/uL (4.5-5.90)
[2019-04-24 04:32] LABS: Calcium 7.6 mg/dL (8.5-10.1)
[2019-04-24 04:34] LABS: BUN/Creatinine Ratio 11.9
--- NOTE | 2019-04-24 05:00 | NUR ---
LUNGS REMAIN CLEAR. REMAINS SEDATED WHILE ON THE VENTILATOR. TOLERATING FEEDING WITH NO RESIDUAL. TURNED FOR COMFORT.
[2019-04-24] MEDS: SOD CHL 0.45% WITH 20MEQ KCL 1,000 ML IV SCH ×2 (06:00→17:24)
[2019-04-24] MEDS: MIDAZOLAM DRIP 50 mg/50mL 50 ML IV SCH ×2 (06:00→21:24)
[2019-04-24] MEDS: PROPOFOL 100 ML IV SCH ×3 (06:01→21:25)
[2019-04-24] MEDS: VANCOMYCIN 1,500 MG in D5W 5% 250 ML IV SCH ×2 (06:01→17:51)
--- NOTE | 2019-04-24 07:00 | NUR ---
REPORT GIVEN TO NIGHT Siena CLAY. BEDSIDE CHECK DONE. Addendum: 04/24/19 at 0738 by ANGEL WOODS RN RN *day. REPORT GIVEN TO day Siena CLAY. BEDSIDE CHECK DONE.
--- NOTE | 2019-04-24 08:00 | NUR ---
OPEN RECEIVED REPORT FROM NIGHT RN. ASSUMED CARE OF ICU PATIENT, FULL CODE STATUS AT THIS TIME. POSSIBLE TERMINAL WEAN FOR LATER ON TODAY, ONCE PATIENT'S FAMILY IS READY. CURRENTLY AT BEDSIDE. PATIENT ON VENT, SEDATED AT THIS TIME. SEE IV FLOW SHEET FOR GTT'S AND THEIR TITRATIONS. OGT CLAMPED AT THIS TIME. GARCIA TO GRAVITY. RIGHT FEMORAL TLC PATENT AND DRESSING CDI. WILL CONTINUE CARE AT THIS TIME.
[2019-04-24] MEDS: ASPirin 81 mg TAB PO SCH (10:00)
[2019-04-24] MEDS: CLOPIDOGREL BISULFATE 75 MG TAB PO SCH (10:00)
[2019-04-24] MEDS: FAMOTIDINE (10MG/ML) 2ML VL IV SCH ×2 (10:00→22:09)
--- NOTE | 2019-04-24 10:14 | NUR ---
[facility] CALLED: UPDATE TALKED WATER PLUMBER OVER THE PHONE, UPDATED THEM ON PT' S CURRENT STATUS, HEMODYNAMICS AND GTT'S AT THIS TIME. PATIENT REMAINS ON VENT. WAITING FOR PATIENT'S FAMILY TO COME VISIT PATIENT. HOLD ON TERMINAL WEAN AT THIS TIME. WILL CONTINUE TO MONITOR.
[2019-04-24] MEDS ORDERED: MORPHINE SULF INJ 2 MG/ML SYRINGE 1ML ONE (12:21)
[2019-04-24] MEDS ORDERED: MORPHINE SULF INJ 2 MG/ML SYRINGE 1ML IV PRN (12:30)
--- NOTE | 2019-04-24 12:45 | NUR ---
DNR STATUS: COMFORT CARE AT THIS TIME PATIENT'S URMILA, CHANGED CURRENT CODE STATUS TO COMPLETE DNR STATUS, COMFORT CARE ONLY. ORDER PLACED IN FRONT OF CHART. SIGNED BY MYSELF AND DR. BROCK. CONTINUE CARE.
[2019-04-24] MEDS: NOREPINEPHRINE 8 MG/250ML KIT 250 ML IV SCH (13:10)
[2019-04-24] MEDS ORDERED: LORazepam 0.5 MG TAB PO PRN (15:15)
[2019-04-24] MEDS ORDERED: LORazepam 2MG/ML-1ML VIAL IV PRN (16:00)
--- NOTE | 2019-04-24 17:57 | NUR ---
Respiratory note: RECEIVED PT ON VENT. VENT CONNECTED TO RED OUTLET AND O2 SOURCE. ALARMS ARE SET AND AUDIBLE. AMBU BAG AND MASK AT BEDSIDE. BS ARE DIMINISHED T/O, SXD FOR SCANT CREAMY GARCIA. AUDIBLE GURGLING ADDED AIR TO CUFF, CUFF PRESSURE 29 CMH2O, ETT MOVED TO CENTER WITHOUT INCIDENT. RT NAME AND PAGER ASSIGNMENT WRITTEN ON PTS ROOM BOARD. WILL CONTINUE TO MONITOR.
--- NOTE | 2019-04-24 18:30 | NUR ---
STATUS PATIENT SEDATED ON VENT. FAMILY WANT TO DO TERMINAL WEAN TOMORROW AFTERNOON. TO INFORMED RN TOMORROW WHEN THEY WANT TO DO TERMINAL WEAN.
--- NOTE | 2019-04-24 19:12 | NUR ---
open note RECEIVED REPORT FROM DAY RN, assumed care of male patient sedated and orally intubated. pt on versed of 10mg/hr, propofol 30mcg/kg/min. pt connected to icu monitors, sr 79. pt does not grimace is unarousable no response to stimuli. no response to turns or oral car. pt does not have cough or gag response. pupils are uneven and fixed. R pupil 3 L pupil 2. pt appears to be resting in bed, respirations clear and unlabored O2 93%. pt does not open eyes and does not follow commands. pt has ogt PLACMENT VERIFIED, PATENT AND CLAMPED. pt has triple lumen cath to R femoral groin,iv is patent, flushes, no ss of redness or swelling, dressing clean and dry. pt also has R ac 18G iv is patent flushes no ss of redness or swelling, dressing clean and dry. pt has Winston hanging below bladder, patent draining clear yellow urine to gravity. pillows placed under patients eitan prominences to offload pressure and for patients comfort and safety. no indication of pain observed at this time. Bed in lowest position, wheels locked, side rails up x2, all alarms on and audible. pt in full view of nurses station. will continue to care for and monitor.
--- NOTE | 2019-04-24 20:07 | NUR ---
rt at bedside
--- NOTE | 2019-04-24 20:08 | NUR ---
Respiratory note: AT BEDSIDE FOR ROUTINE VENT CHECK. NO CHANGE MADE AT THIS TIME. PTS CURRENT TEMP IS 97.3F. FAMILY AT BEDSIDE.
--- NOTE | 2019-04-24 21:00 | NUR ---
PT APPEARS RESTING pt sedated and intubated and appears to be resting IN BED, no ss of distress noted at this time. HOB 30*, SAFETY MEASURES IN PLACE, SUCTIONED PT, no secretions.
--- NOTE | 2019-04-24 22:00 | NUR ---
TEMP CORRECTION PT TEMP 97.3 WARMING MEASURES PLACED FOR PTS SAFETY AND COMFORT.
--- NOTE | 2019-04-24 22:30 | NUR ---
Respiratory note: AT BEDSIDE FOR ROUTINE VENT CHECK. NO CHANGE MADE AT THIS TIME. PTS CURRENT TEMP IS 97.7F.
--- NOTE | 2019-04-24 23:00 | NUR ---
NO DISTRESS NOTED PT APPEARS RESTING IN BED HOB 30*, SAFETY MEASURES IN PLACE, SUCTIONED PT, MINIMAL AMOUNT OF ORAL SECRETIONS SUCTIONED. Addendum: 04/25/19 at 0027 by ANGEL WOODS RN RN NO DISTRESS NOTED PT APPEARS RESTING IN BED HOB 30*, SAFETY MEASURES IN PLACE, SUCTIONED PT, MINIMAL AMOUNT OF ORAL SECRETIONS SUCTIONED. NO SIGNS OF DISTRESS NOTED AT THIS TIME
--- NOTE | 2019-04-24 23:50 | NUR ---
rt at bedside
--- NOTE | 2019-04-24 23:52 | NUR ---
Respiratory note: AT BEDSIDE FOR ROUTINE VENT CHECK. NO CHANGE MADE AT THIS TIME. PTS CURRENT TEMP IS 98.2F WILL CONTINUE TO MONITOR.
[2019-04-25] VITALS (82 sets, daily range): BP systolic 97–152; BP diastolic 56–99
[2019-04-25] MEDS: PIPERACILLIN-TAZOB 3.375GM 100 ML IV SCH ×2 (01:01→06:19)
--- NOTE | 2019-04-25 02:28 | NUR ---
rt at bedside
--- NOTE | 2019-04-25 02:28 | NUR ---
Respiratory note: AT BEDSIDE FOR ROUTINE VENT CHECK. NO CHANGE MADE AT THIS TIME. PTS CURRENT TEMP IS 98.8F WILL CONTINUE TO MONITOR.
--- NOTE | 2019-04-25 02:45 | NUR ---
[facility] Gui at [facility] called and was given update on pts vs and urine output was informed that family said they are considering terminal weining the pt 04/25/19 and will let the nurse know when they decide to actually do it. Gui asked for us to call as soon as we have that information or if the pt codes before then.
[2019-04-25] MEDS: EPINEPHrine HCL 250 ML IV SCH (02:48)
--- NOTE | 2019-04-25 03:00 | NUR ---
hygiene bed bath provided, partial linen change preformed, skin assessed for integrity changes, none noted. suction canisters and tubing changed. patient repositioned for comfort and safety, pt tolerates turns and cares. will continue to care for and monitor.
[2019-04-25] MEDS: InsuLIN REG 1unit/0.01ml Soln (100units/ml) SC SCH ×4 (04:00→12:00)
--- NOTE | 2019-04-25 04:10 | NUR ---
rt at bedside
--- NOTE | 2019-04-25 04:13 | NUR ---
Respiratory note: END OF SHIFT VENT CHECK. WILL ENDORSE CARE TO DAY SHIFT RT.
[2019-04-25] MEDS: ACCU-CHEK COMFORT CURVE STRIP VI SCH ×4 (04:19→12:00)
[2019-04-25] MEDS: VANCOMYCIN 1,500 MG in D5W 5% 250 ML IV SCH (06:19)
--- NOTE | 2019-04-25 06:49 | NUR ---
vs wnl pt sedated and intubated, vs wnl. repositioned pt for comfort. no ss of distress noted at this time. will continue to care for and monitor pt.
--- NOTE | 2019-04-25 07:22 | NUR ---
REPORT GIVEN TO kalpana RNaki. BEDSIDE CHECK DONE.
--- NOTE | 2019-04-25 08:05 | NUR ---
PATIENTS AND FAMILY AT BEDSIDE
[2019-04-25] MEDS: SOD CHL 0.45% WITH 20MEQ KCL 1,000 ML IV SCH (08:40)
[2019-04-25] MEDS: ASPirin 81 mg TAB PO SCH (10:00)
[2019-04-25] MEDS: CLOPIDOGREL BISULFATE 75 MG TAB PO SCH (10:00)
[2019-04-25] MEDS: FAMOTIDINE (10MG/ML) 2ML VL IV SCH (10:00)
--- NOTE | 2019-04-25 10:00 | NUR ---
SPOKE WITH PATIENT URMILA, AT THIS TIME, SHE WISHES TO DISCONTINUE ANTIBIOTIC THERAPY AND PREVENTATIVE MEDICATIONS. ONLY WANTS SEDATION DRIP AND IV FLUIDS UNTIL SHE DECIDES TO TERMINALLY WEAN THIS AFTERNOON, THEN ONLY USE MEDICATIONS FOR COMFORT
--- NOTE | 2019-04-25 10:06 | NUR ---
SPOKE WITH MALIA AT [facility]- [phone] UPDATED ON CURRENT STATUS, VITALS AND DRIPS. INFORMED HER PATIENTS STATES PLAN TO WEAN THIS AFTERNOON.
--- NOTE | 2019-04-25 12:33 | NUR ---
SPOKE WITH MALIA FROM [facility], FAMILY DECIDED TO GO FORWARDED WITH DONATION.
[2019-04-25] MEDS: NOREPINEPHRINE 8 MG/250ML KIT 250 ML IV SCH (13:40)
--- NOTE | 2019-04-25 14:05 | NUR ---
DR LIS Fernandez BEDSIDE NEW ORDERS PLACED
--- NOTE | 2019-04-25 14:23 | NUR ---
ASSET MANAGEMENT ANALYST AT BEDSIDE
--- NOTE | 2019-04-25 15:30 | NUR ---
MALIA FROM [facility] IN UNIT
--- NOTE | 2019-04-25 18:40 | NUR ---
PATIENTS AND [facility] TEAM MEETING IN CONFERENCE ROOM.
--- NOTE | 2019-04-25 19:30 | NUR ---
OPENING SHIFT NOTE RECEIVED PT ON MECHANICAL VENTILATOR. ALL SEDATION OFF SINCE 1529. PT DOES NOT RESPOND TO ANY STIMULI. NO COUGH OR GAG. PUPILS UNEQUAL. RIGHT EYE 3 AND FIXED, LEFT EYE 2 AND FIXED. SINUS RHYTHM ON BEDSIDE MONITOR, HR 90. PULSES PALPABLE. OGT CLAMPED AND PLACEMENT VERIFIED. ABDOMEN LARGE AND SOFT. FULL ASSESSMENT DONE SEE INTERVENTIONS. FLEXI SEAL IN PLACE DRAINING SMALL AMOUNT OF LIQUID BROWN STOOL. GARCIA CATHETER IN PLACE DRAINING DARK TRAN URINE. R GROIN TLC, SITE BENIGN ALL PORTS PATENT. PERIPHERAL 18 G IV TO RIGHT AC. IV SITE BENIGN, AND PATENT, SEE IV SPREADSHEET FOR INFUSIONS. ORAL CARE DONE, AND PT REPOSITIONED TO PREVENT SKIN BREAK DOWN. ALL BONY PROMINENCES OFF LOADED. ALL ALARMS ON AND AUDIBLE. PT IS A DNR AT THIS TIME AND [facility] IS ON BOARD FOR POSSIBLE ORGAN DONATION. WILL CONTINUE TO MONITOR FOR ANY CHANGES.
--- NOTE | 2019-04-25 20:10 | NUR ---
MALIA FROM [facility] VERIFIED WITH PT'S FAMILY THAT THEY HAVE GIVEN CONSENT TO GO AHEAD WITH ORGAN DONATION. PER LIS, ORDERS TO BE CARRIED OUT UNDER HIM FOR ORDERS NEEDED BY [facility].
--- NOTE | 2019-04-25 20:30 | NUR ---
PER MALIA FROM [facility] TO START VASOPRESSIN GTT AT 0.04 UNITS/MIN AT THAT FIXED RATE.
[2019-04-25] MEDS ORDERED: VASOPRESSIN 20 UNIT/ML ONE (21:15)
--- NOTE | 2019-04-25 22:00 | NUR ---
BENITEZ FROM [facility] CALLED FOR AN UPDATE. PT'S CURRENT VITALS GIVEN AND U/O.
--- NOTE | 2019-04-25 22:10 | NUR ---
EKG, ABD US, AND CHEST X-RAY DONE. EKG IN THE CHART.
--- NOTE | 2019-04-25 23:00 | NUR ---
CARRIER CAME TO REGULATION SUPERVISOR LABS FOR [facility].
[2019-04-26] VITALS (106 sets, daily range): BP systolic 35–171; BP diastolic 28–97
[2019-04-26 00:39] LABS: Basophils % (manual) 0 (0.0-2.0); Blast Cells 0; Metamyelocytes % 0; Myelocytes % 0; Promyelocytes % 0; Reactive Lymphocytes 0
[2019-04-26] MEDS: SOD CHL 0.45% WITH 20MEQ KCL 1,000 ML IV SCH ×2 (00:45→08:59)
[2019-04-26 00:49] LABS: Hematocrit 35.2 % (41.0-53.0); Hemoglobin 11.8 g/dL (13.5-17.5); Mean Corpuscular Hemoglobin 31.5 pg (28.0-32.0); Mean Corpuscular Hgb Conc. 33.6 g/dL (32.0-36.0); Mean Corpuscular Volume 93.8 fL (80.0-100.0); Platelet Count (auto) 128 10^3/uL (140-450); Red Blood Cells 3.75 10^6/uL (4.5-5.90); Red Cell Distribution Width 13.9 % (11.8-14.3); White Blood Cell 9.7 10^3/uL (4.4-10.8)
[2019-04-26 00:57] LABS: Band Neutrophils % (manual) 7; Eosinophils % (manual) 6 (0-7); Lymphocytes % (manual) 21 (10.0-50.0); Monocytes % (manual) 11 (0-12)
[2019-04-26 00:59] LABS: INR < 0.93 (0.9-1.15); Partial Thromboplastin Time 24.7 sec (23.64-32.05)
[2019-04-26 01:15] LABS: Albumin 2.3 g/dL (3.4-5.0); BUN/Creatinine Ratio 16.7; Calcium 7.8 mg/dL (8.5-10.1); Magnesium 2.1 mg/dL (1.6-2.6)
[2019-04-26 01:18] LABS: Bilirubin, Total 1.4 mg/dL (0.2-1.0); Phosphorus 3.8 mg/dL (2.5-4.90); Total Protein 5.3 g/dL (6.4-8.2)
[2019-04-26 01:29] LABS: Urine Bacteria NONE SEEN /hpf (None Seen); Urine Blood Negative /uL (Negative); Urine Specific Gravity 1.019 (1.001-1.035); Urine WBC 4 /hpf (0 - 3)
--- NOTE | 2019-04-26 05:00 | NUR ---
TEMPERATURE PT'S CURRENT TEMPERATURE AT 100.4. COOLING MEASURES IN PLACE WILL CONTINUE TO MONITOR.
[2019-04-26 05:50] LABS: Basophils % (manual) 0 (0.0-2.0); Blast Cells 0; Metamyelocytes % 0; Myelocytes % 0; Promyelocytes % 0; Reactive Lymphocytes 0
[2019-04-26 06:00] LABS: Hematocrit 34.9 % (41.0-53.0); Hemoglobin 11.8 g/dL (13.5-17.5); Mean Corpuscular Hemoglobin 31.7 pg (28.0-32.0); Mean Corpuscular Hgb Conc. 33.9 g/dL (32.0-36.0); Mean Corpuscular Volume 93.6 fL (80.0-100.0); Platelet Count (auto) 123 10^3/uL (140-450); Red Blood Cells 3.73 10^6/uL (4.5-5.90); Red Cell Distribution Width 13.6 % (11.8-14.3); White Blood Cell 9.3 10^3/uL (4.4-10.8)
--- NOTE | 2019-04-26 06:00 | NUR ---
[facility] Armando from [facility] called for update. Current vitals given and any changes in pt's condition provided. CD image request of ABD US requested. will carry out order. Addendum: 04/26/19 at 0617 by TOM JACKSON RN Armando informed that Sreedhar Charles will be taking over at 0800. His number is [phone]. Will pass along to day shift RN to inform him of any changes with the patient after 8.
[2019-04-26 06:06] LABS: INR 0.95 (0.9-1.15); Partial Thromboplastin Time 23.4 sec (23.64-32.05)
--- NOTE | 2019-04-26 06:14 | NUR ---
TEMPERATURE REASSESSMENT PT'S CURRENT TEMP AT 99.5 RECTALLY AT THIS TIME. WILL CONTINUE CARE AND CLOSE MONITORING.
[2019-04-26 07:00] LABS: Band Neutrophils % (manual) 16; Eosinophils % (manual) 3 (0-7); Lymphocytes % (manual) 10 (10.0-50.0); Monocytes % (manual) 9 (0-12)
[2019-04-26 07:22] LABS: Potassium 3.8 mmol/L (3.5-5.1)
[2019-04-26 07:23] LABS: BUN/Creatinine Ratio 17.2; Calcium 8.1 mg/dL (8.5-10.1)
[2019-04-26 07:24] LABS: Albumin 2.2 g/dL (3.4-5.0); Bilirubin, Total 1.7 mg/dL (0.2-1.0); Total Protein 5.9 g/dL (6.4-8.2)
[2019-04-26 07:25] LABS: Magnesium 1.9 mg/dL (1.6-2.6)
--- NOTE | 2019-04-26 07:30 | NUR ---
ASSESS- PT. LYING IN BED ON VENT SIZE # 8.0, 28 AT THE LIP, AC-18, TV-600, PEEP-5, FIO2-30%. LUNGS CLEAR MILLICENT. INSPIRATORY AND EXPIRATORY. PT. HAS NO GAG/COUGH REFLEX. RT. PUPIL 3 AND FIXED, LT. PUPIL 2 AND FIXED. NO RESPONSE TO PAINFUL/TACTILE STIMULI. DOES NOT FOLLOW ANY COMMANDS. NO MOVEMENT OF EXTREMITIES SEEN. NO SEDATION. TLC RT. GROIN INTACT. OGT IN PLACE, CLAMPED. PT. IS NPO. ABD. SOFT, FLAT. BOWEL SOUNDS ALL FOUR QUADRANTS. FLEXISEAL TO GRAVITY WITH SM. AMOUNT LIQUID BROWN STOOL. F/C TO GRAVITY WITH CLEAR LT. TRAN URINE. RADIAL PULSES STRONG, PALPABLE MILLICENT. PEDAL PULSES STRONG, PALPABLE MILLICENT. SCD'S MILLICENT. LE. BURN TO CHEST, OPEN TO AIR. PT. IS DNR STATUS.
--- NOTE | 2019-04-26 08:30 | NUR ---
[facility] HERE. GAVE UPDATE ON PT.
[2019-04-26] MEDS: VASOPRESSIN 50 UNITS in D5W 5% 247.5 ML IV SCH ×2 (09:15→16:55)
[2019-04-26] MEDS: EPINEPHrine HCL 250 ML IV SCH (09:30)
[2019-04-26] MEDS: MIDAZOLAM DRIP 50 mg/50mL 50 ML IV SCH (09:39)
--- NOTE | 2019-04-26 10:15 | NUR ---
DR. HALL Provider/Hospitalist at bedside. GAVE UPDATE ON PT. NEW ORDERS RECEIVED.
[2019-04-26] MEDS: PROPOFOL 100 ML IV SCH (10:38)
[2019-04-26] MEDS: NOREPINEPHRINE 8 MG/250ML KIT 250 ML IV SCH (10:38)
[2019-04-26] MEDS ORDERED: cefTRIAXone 1GM/50ML D5W 50 ML IV ONE (11:00)
--- NOTE | 2019-04-26 11:53 | NUR ---
Nutrition Follow-up Notes Wt.: 106.5 kg Pt`s intubated off sedation and propofol. pt is for terminal weans and off feedings. pt is currently NPO Est. Needs ABW [id number] kcal (23-25 kcal/kgBW), 91-100 gms pro (1.0-1.1 gms/kgBW). Will continue to monitor pertinent labs and reassess nutrient need prn Labs: CA 8.1 L, ALB 2.2 L. Skin: Winston scale 10, high risk wounds per RN doc GI: Pt had 20 ml BM today per electromedical equipment technician. PES: Altered nutrition related lab values r/t current/chronic medical condition aeb hypocalcemia, mod hypoalb Decreased nutrient needs r.t adiposity aeb pt`s high BMI of 30.2 kgm2 Impaired swallowing r.t current medical condition aeb pt`s intubated sedated Will continue to monitor NPO status, pertinent labs and weight trend. F/u in 2-3days. Rec.: 1) Continue current plan of care
[2019-04-26 12:43] LABS: Basophils % (manual) 0 (0.0-2.0); Blast Cells 0; Myelocytes % 0; Promyelocytes % 0; Reactive Lymphocytes 0
[2019-04-26 12:47] LABS: Hemoglobin 11.3 g/dL (13.5-17.5); Mean Corpuscular Hemoglobin 31.1 pg (28.0-32.0); Mean Corpuscular Hgb Conc. 33.2 g/dL (32.0-36.0); Mean Corpuscular Volume 93.7 fL (80.0-100.0); Platelet Count (auto) 124 10^3/uL (140-450); Red Blood Cells 3.63 10^6/uL (4.5-5.90); White Blood Cell 8.3 10^3/uL (4.4-10.8)
[2019-04-26 13:00] LABS: Basophils % (manual) 0 (0.0-2.0); Blast Cells 0; Myelocytes % 0; Promyelocytes % 0; Reactive Lymphocytes 0
--- NOTE | 2019-04-26 13:00 | NUR ---
PT. IS ON NO SEDATION. CONTINUES TO HAVE NO GAG/COUGH REFLEX. RT. PUPIL 3 AND FIXED, LT. PUPIL 2 AND FIXED. NO RESPONSE TO PAINFUL/TACTILE STIMULI. NO MOVEMENT OF EXTREMITIES SEEN. DOES NOT FOLLOW ANY COMMANDS.
[2019-04-26 13:02] LABS: Albumin 2.1 g/dL (3.4-5.0); BUN/Creatinine Ratio 20.3; Calcium 8.2 mg/dL (8.5-10.1); Magnesium 2.2 mg/dL (1.6-2.6); Potassium 3.9 mmol/L (3.5-5.1)
[2019-04-26 13:06] LABS: Bilirubin, Total 1.6 mg/dL (0.2-1.0); Total Protein 5.7 g/dL (6.4-8.2)
[2019-04-26 13:41] LABS: Urine Bacteria NONE SEEN /hpf (None Seen); Urine Blood TRACE /uL (Negative); Urine Specific Gravity 1.019 (1.001-1.035); Urine WBC 2 /hpf (0 - 3)
[2019-04-26 14:35] LABS: INR 0.94 (0.9-1.15); Partial Thromboplastin Time 25.4 sec (23.64-32.05)
--- NOTE | 2019-04-26 15:20 | NUR ---
DESIREE BROWER AT BS FOR A-LINE PLACEMENT.
[2019-04-26 15:51] LABS: Band Neutrophils % (manual) 10; Eosinophils % (manual) 2 (0-7); Lymphocytes % (manual) 8 (10.0-50.0); Metamyelocytes % 1; Monocytes % (manual) 10 (0-12)
[2019-04-26 16:02] LABS: Platelet Count (auto) 124 10^3/uL (140-450)
[2019-04-26 16:03] LABS: Band Neutrophils % (manual) 10; Eosinophils % (manual) 2 (0-7); Lymphocytes % (manual) 8 (10.0-50.0); Metamyelocytes % 1; Monocytes % (manual) 10 (0-12)
--- NOTE | 2019-04-26 16:05 | NUR ---
PT. NOW HAS A-LINE RT. FEMORAL, ZEROED, GOOD WAVEFORM.
--- NOTE | 2019-04-26 17:30 | NUR ---
TEMP 99.5 RECTALLY. PLACED ICE PACKS MILLICENT. AXILLA AND GROIN. NO COVERS ON PT.
[2019-04-26 18:06] LABS: Basophils % (manual) 0 (0.0-2.0); Blast Cells 0; Metamyelocytes % 0; Myelocytes % 0; Promyelocytes % 0; Reactive Lymphocytes 0; Urine WBC None Seen /hpf (0 - 3)
[2019-04-26 18:15] LABS: Hemoglobin 11.3 g/dL (13.5-17.5); Mean Corpuscular Hemoglobin 31.1 pg (28.0-32.0); Mean Corpuscular Hgb Conc. 33.3 g/dL (32.0-36.0); Mean Corpuscular Volume 93.5 fL (80.0-100.0); Platelet Count (auto) 127 10^3/uL (140-450); Red Blood Cells 3.63 10^6/uL (4.5-5.90); Red Cell Distribution Width 13.7 % (11.8-14.3); White Blood Cell 7.4 10^3/uL (4.4-10.8)
[2019-04-26 18:21] LABS: Basophils % (manual) 0 (0.0-2.0); Blast Cells 0; Metamyelocytes % 0; Myelocytes % 0; Promyelocytes % 0; Reactive Lymphocytes 0
[2019-04-26 18:25] LABS: Urine Bacteria FEW /hpf (None Seen); Urine Blood 1+ /uL (Negative); Urine Mucus FEW (None Seen); Urine Specific Gravity 1.019 (1.001-1.035)
--- NOTE | 2019-04-26 18:30 | NUR ---
[facility] ASKED FOR FIO2 TO BE INCREASED ON VENT DUE TO RECENT ABG RESULTS WITH PO2 OF 66. PAGED RT AND SAID HE WILL COME SOON.
--- NOTE | 2019-04-26 18:30 | NUR ---
TEMP DECREASED TO 99.1 RECTALLY. ICE PACKS REMAIN IN PLACE.
[2019-04-26 18:39] LABS: INR 0.96 (0.9-1.15); Partial Thromboplastin Time 24.9 sec (23.64-32.05)
[2019-04-26 18:40] LABS: Albumin 2.1 g/dL (3.4-5.0); BUN/Creatinine Ratio 24.1; Potassium 3.7 mmol/L (3.5-5.1)
[2019-04-26 18:43] LABS: Bilirubin, Total 1.7 mg/dL (0.2-1.0); Phosphorus 2.7 mg/dL (2.5-4.90); Total Protein 5.9 g/dL (6.4-8.2)
--- NOTE | 2019-04-26 19:30 | NUR ---
OPENING SHIFT NOTE RECEIVED PT ON MECHANICAL VENTILATOR. OFF ALL SEDATION FOR 2 DAYS NOW. PT DOES NOT RESPOND TO ANY STIMULI. NO COUGH OR GAG. PUPILS UNEQUAL. RIGHT EYE 3 AND FIXED, LEFT EYE 2 AND FIXED. SINUS RHYTHM ON BEDSIDE MONITOR, HR 90. PULSES PALPABLE. OGT CLAMPED AND PLACEMENT VERIFIED. ABDOMEN LARGE AND SOFT. FULL ASSESSMENT DONE SEE INTERVENTIONS. FLEXI SEAL IN PLACE DRAINING SMALL AMOUNT OF LIQUID BROWN STOOL. GARCIA CATHETER IN PLACE DRAINING DARK TRAN URINE. R GROIN TLC, SITE BENIGN ALL PORTS PATENT. RIGHT GROIN ARTERIAL LINE PLACED TODAY. LINE DOES NOT PULL BACK BLOOD AND DOES NOT HAVE A GOOD WAVE FORM, CAN NOT ZERO PROPERLY. PERIPHERAL 18 G IV TO RIGHT AC SALINE LOCKED. IV SITE BENIGN, AND PATENT, SEE IV SPREADSHEET FOR INFUSIONS. ORAL CARE DONE, AND PT REPOSITIONED TO PREVENT SKIN BREAK DOWN. ALL BONY PROMINENCES OFF LOADED. ALL ALARMS ON AND AUDIBLE. PT IS A DNR AT THIS TIME AND [facility] IS ON BOARD FOR POSSIBLE ORGAN DONATION. WILL CONTINUE TO MONITOR FOR ANY CHANGES.
[2019-04-26 20:12] LABS: Band Neutrophils % (manual) 6; Lymphocytes % (manual) 13 (10.0-50.0); Monocytes % (manual) 9 (0-12)
[2019-04-26 20:13] LABS: Eosinophils % (manual) 2 (0-7)
[2019-04-26 20:15] LABS: Band Neutrophils % (manual) 6; Eosinophils % (manual) 2 (0-7); Lymphocytes % (manual) 13 (10.0-50.0); Monocytes % (manual) 9 (0-12); Platelet Count (auto) 127 10^3/uL (140-450)
--- NOTE | 2019-04-26 20:45 | NUR ---
CALL TO [facility] Called Sreedhar from [facility] to update on pt's status and let him know the A line is not working properly. Sreedhar states that the pt needs a working, patent a-line before OR.
--- NOTE | 2019-04-26 21:10 | NUR ---
[facility] FROM [facility] CALLED TO GET AN UPDATE ON PT STATUS AND WILL BE TAKING OVER TONIGHT.
[2019-04-27] VITALS (63 sets, daily range): BP systolic 16–216; BP diastolic 4–176
[2019-04-27 00:40] LABS: Hematocrit 33.4 % (41.0-53.0); Hemoglobin 11.2 g/dL (13.5-17.5); Mean Corpuscular Hemoglobin 31.6 pg (28.0-32.0); Mean Corpuscular Hgb Conc. 33.6 g/dL (32.0-36.0); Mean Corpuscular Volume 94.1 fL (80.0-100.0); Platelet Count (auto) 131 10^3/uL (140-450); Red Blood Cells 3.55 10^6/uL (4.5-5.90); Red Cell Distribution Width 13.4 % (11.8-14.3); White Blood Cell 8.1 10^3/uL (4.4-10.8)
[2019-04-27] MEDS: SOD CHL 0.45% WITH 20MEQ KCL 1,000 ML IV SCH (00:40)
[2019-04-27 00:43] LABS: Basophils % (manual) 0 (0.0-2.0); Blast Cells 0; Eosinophils % (manual) 0 (0-7); Myelocytes % 0; Promyelocytes % 0; Reactive Lymphocytes 0
[2019-04-27 00:50] LABS: Urine Bacteria FEW /hpf (None Seen); Urine Blood 2+ /uL (Negative); Urine Mucus FEW (None Seen); Urine Specific Gravity 1.019 (1.001-1.035); Urine WBC 7 /hpf (0 - 3)
[2019-04-27 00:58] LABS: INR 0.97 (0.9-1.15); Partial Thromboplastin Time 25.9 sec (23.64-32.05)
[2019-04-27 01:00] LABS: Potassium 3.6 mmol/L (3.5-5.1)
[2019-04-27 01:30] LABS: Band Neutrophils % (manual) 11; Lymphocytes % (manual) 17 (10.0-50.0); Metamyelocytes % 1; Monocytes % (manual) 10 (0-12)
[2019-04-27 01:48] LABS: BUN/Creatinine Ratio 27.1; Calcium 8.1 mg/dL (8.5-10.1); Phosphorus 2.5 mg/dL (2.5-4.90)
--- NOTE | 2019-04-27 02:46 | NUR ---
[facility] Call received from [place], updated on pt's status and given recent labs.
[2019-04-27] MEDS: EPINEPHrine HCL 250 ML IV SCH (02:48)
--- NOTE | 2019-04-27 04:49 | NUR ---
CARES FULL LINEN CHANGE AND FULL BED BATH GIVEN. SKIN INTEGRITY ASSESSED FOR ANY CHANGES; BLANCHABLE REDNESS TO SACRUM. OPTIFOAM AND Z-GUARD APPLIED AND PT REPOSITIONED OFF SACRUM. PT TOLERATED WELL.
[2019-04-27 06:06] LABS: Hematocrit 34.3 % (41.0-53.0); Hemoglobin 11.6 g/dL (13.5-17.5); Mean Corpuscular Hemoglobin 31.7 pg (28.0-32.0); Mean Corpuscular Hgb Conc. 33.9 g/dL (32.0-36.0); Mean Corpuscular Volume 93.3 fL (80.0-100.0); Platelet Count (auto) 130 10^3/uL (140-450); Red Blood Cells 3.68 10^6/uL (4.5-5.90); Red Cell Distribution Width 13.7 % (11.8-14.3)
[2019-04-27 06:25] LABS: Basophils % (manual) 0 (0.0-2.0); Blast Cells 0; Myelocytes % 0; Promyelocytes % 0; Reactive Lymphocytes 0
[2019-04-27 06:26] LABS: Albumin 2.1 g/dL (3.4-5.0); Calcium 8.1 mg/dL (8.5-10.1); Magnesium 1.8 mg/dL (1.6-2.6); Potassium 3.4 mmol/L (3.5-5.1)
[2019-04-27 06:31] LABS: Bilirubin, Total 2.3 mg/dL (0.2-1.0); Phosphorus 2.7 mg/dL (2.5-4.90); Total Protein 6.1 g/dL (6.4-8.2)
[2019-04-27 06:46] LABS: INR 0.96 (0.9-1.15); Partial Thromboplastin Time 26.6 sec (23.64-32.05)
--- NOTE | 2019-04-27 07:18 | NUR ---
End of shift note Report given to day shift RN. Potassium replacement and new A-line placement endorsed to day shift RN.
--- NOTE | 2019-04-27 07:20 | NUR ---
HOSPITALIST PAGED REGARDING POTASSIUM LEVEL AWAITING CALLBACK
--- NOTE | 2019-04-27 07:21 | NUR ---
SHIFT OPENING NOTE PATIENT ON MECHANICAL VENTILATOR, NO SEDATION AT THIS TIME, RIGHT PUPIL 4 MM ROUND, NO REACTION TO LIGHT, LEFT PUPIL 3 MM ROUND AND NON REACTIVE TO LIGHT, NO COUGH OR GAG REFLEX, NO RESPONSE TO PAINFUL STIMULI, LUNGS CLEAR, HR 92 SR WITH NO ECTOPY, ON VASOPRESSIN AT .04 UNITS. ABDOMEN ROUND AND SOFT, OGT CLAMPED, GARCIA DRAINING CLEAR, YELLOW URINE WITH BAG HUNG BELOW BLADDER, FREE OF KINKS, HYPOACTIVE BOWEL SOUNDS, FLEXISEAL IN PLACE, SCD'S BILATERALLY, ARTERIAL LINE WITH NO BLOOD RETURN AND MEASURABLE BLOOD PRESSURE, INFORMED [facility].
--- NOTE | 2019-04-27 07:24 | NUR ---
DESIREE WHALEY CALLBACK ORDERS RECEIVED
[2019-04-27] MEDS ORDERED: POTASSIUM CHL 20MEQ/100ML 100 ML IV ONE ×2 (07:28→07:30)
--- NOTE | 2019-04-27 07:55 | NUR ---
[facility] NURSE AT BEDSIDE, LEONIDAS. ALL QUESTIONS AND CONCERNS ADDRESSED
--- NOTE | 2019-04-27 08:00 | NUR ---
URINE OUTPUT 125 CC
[2019-04-27] MEDS ORDERED: cefTRIAXone 1GM/50ML D5W 50 ML IV SCH (09:00)
--- NOTE | 2019-04-27 10:00 | NUR ---
URINE OUTPUT 175 CC
--- NOTE | 2019-04-27 10:13 | NUR ---
DR. HAYS PAGED AWAITING CALLBACK
[2019-04-27] MEDS: MIDAZOLAM DRIP 50 mg/50mL 50 ML IV SCH (11:50)
[2019-04-27 12:25] LABS: Basophils % (manual) 0 (0.0-2.0); Blast Cells 0; Myelocytes % 0; Promyelocytes % 0; Reactive Lymphocytes 0
[2019-04-27 12:27] LABS: Band Neutrophils % (manual) 2; Eosinophils % (manual) 4 (0-7); Lymphocytes % (manual) 13 (10.0-50.0); Metamyelocytes % 1; Monocytes % (manual) 14 (0-12)
[2019-04-27 12:35] LABS: Basophils # (auto) 0.1 uL; Basophils % (auto) 0.6 % (0.0-2.0); Eosinophils # (auto) 0.3 uL; Eosinophils % (auto) 3.7 % (0.0-7.0); Hematocrit 37.2 % (41.0-53.0); Hemoglobin 12.2 g/dL (13.5-17.5); Lymphocytes # (auto) 1.1 uL; Mean Corpuscular Hemoglobin 30.9 pg (28.0-32.0); Mean Corpuscular Hgb Conc. 32.9 g/dL (32.0-36.0); Mean Corpuscular Volume 93.9 fL (80.0-100.0); Monocytes # (auto) 0.9 uL; Monocytes % (auto) 9.7 % (0.0-12.0); Neutrophils # (auto) 6.9 uL; Nucleated Red Blood Cells % 0.1 %; Platelet Count (auto) 154 10^3/uL (140-450); Red Blood Cells 3.96 10^6/uL (4.5-5.90); Red Cell Distribution Width 13.6 % (11.8-14.3); White Blood Cell 9.3 10^3/uL (4.4-10.8)
--- NOTE | 2019-04-27 12:49 | NUR ---
DR. HAYS AT BEDSIDE
[2019-04-27 12:50] LABS: INR 0.96 (0.9-1.15); Partial Thromboplastin Time 25.6 sec (23.64-32.05)
[2019-04-27] MEDS ORDERED: SODIUM BICARBONATE 50ML VIAL 50 ML in SOD CHL 0.45% 1,000 ML IV SCH (13:00)
[2019-04-27] MEDS: VASOPRESSIN 50 UNITS in D5W 5% 247.5 ML IV SCH (13:03)
--- NOTE | 2019-04-27 13:20 | NUR ---
FAMILY URMILA UPDATED ON PATIENT STATUS. ALL QUESTIONS AND CONCERNS ADDRESSED AT THIS TIME
[2019-04-27 13:23] LABS: Urine Bacteria FEW /hpf (None Seen); Urine Blood 1+ /uL (Negative); Urine Mucus FEW (None Seen); Urine Specific Gravity 1.017 (1.001-1.035); Urine WBC 26 /hpf (0 - 3)
[2019-04-27] MEDS ORDERED: HEPARIN SODIUM (PORCINE) 5000 UNITS/ML 1ML VIAL IV ONE (13:30)
[2019-04-27] MEDS: NOREPINEPHRINE 8 MG/250ML KIT 250 ML IV SCH (13:40)
[2019-04-27 13:45] LABS: Potassium 3.7 mmol/L (3.5-5.1)
[2019-04-27 13:52] LABS: Albumin 2.2 g/dL (3.4-5.0); BUN/Creatinine Ratio 20.4; Bilirubin, Total 2.2 mg/dL (0.2-1.0); Calcium 8.3 mg/dL (8.5-10.1); Magnesium 1.8 mg/dL (1.6-2.6); Total Protein 6.5 g/dL (6.4-8.2)
--- NOTE | 2019-04-27 13:55 | NUR ---
A LINE DR. HAYS AT BEDSIDE TO PLACE ARTERIAL LINE TO RIGHT WRIST
[2019-04-27] MEDS: PROPOFOL 100 ML IV SCH (14:57)
[2019-04-27] MEDS ORDERED: HEPARIN SODIUM (PORCINE) 1000 UNITS/ML 30ML VIAL IV ONE (15:00)
--- NOTE | 2019-04-27 15:15 | NUR ---
PATIENT TAKEN TO OR VIA ACLS GUIDELINES
--- NOTE | 2019-04-27 16:00 | NUR ---
HEPARIN GIVEN ORDERED
--- NOTE | 2019-04-27 16:05 | NUR ---
PATIENT EXTUBATED NO VASOPRESSORS OR IV FLUIDS AT THIS TIME
--- NOTE | 2019-04-27 16:15 | NUR ---
PATIENT IN PEA DR. HAYS ALONG WITH OR TEAM AT BEDSIDE
--- NOTE | 2019-04-27 16:20 | NUR ---
PATIENT PULSELESS X [address] HAYS
[2019-04-27 20:00] LABS: Band Neutrophils % (manual) 2; Eosinophils % (manual) 4 (0-7); Lymphocytes % (manual) 14 (10.0-50.0); Monocytes % (manual) 9 (0-12)
[2019-04-27 20:01] LABS: Metamyelocytes % 1
== END 2019-04-27 16:30 | disposition expired | DRG 853 ==
LOC: ER 10:06 → EDBD 10:06 → ICU WEST 10:07
PROVIDERS: ADMIT Nurse Practitioner Acute Care; ATTEND Internal Medicine
PROC: 5A1955Z Respiratory Ventilation, Greater than 96 Consecutive Hours (ICD-10-PCS; principal; 2019-04-20)
PROC: 027034Z Dilation of Coronary Artery, One Artery with Drug-eluting Intraluminal Device, Percutaneous Approach (ICD-10-PCS; 2019-04-20)
PROC: 0BH17EZ Insertion of Endotracheal Airway into Trachea, Via Natural or Artificial Opening (ICD-10-PCS; 2019-04-20)
PROC: 4A023N7 Measurement of Cardiac Sampling and Pressure, Left Heart, Percutaneous Approach (ICD-10-PCS; 2019-04-20)
PROC: B2151ZZ Fluoroscopy of Left Heart using Low Osmolar Contrast (ICD-10-PCS; 2019-04-20)
PROC: B2111ZZ Fluoroscopy of Multiple Coronary Arteries using Low Osmolar Contrast (ICD-10-PCS; 2019-04-20)
PROC: 04HY32Z Insertion of Monitoring Device into Lower Artery, Percutaneous Approach (ICD-10-PCS; 2019-04-20)
PROC: 5A12012 Performance of Cardiac Output, Single, Manual (ICD-10-PCS; 2019-04-20)
PROC: 0JH Subcutaneous Tissue and Fascia, Insertion (ICD-10-PCS; 2019-04-20)
PROC: 06HM33Z Insertion of Infusion Device into Right Femoral Vein, Percutaneous Approach (ICD-10-PCS; 2019-04-20)
DX: A41.9 Sepsis, unspecified organism (principal); G93.41 Metabolic encephalopathy; I21.02 ST elevation (STEMI) myocardial infarction involving left anterior descending coronary artery; J69.0 Pneumonitis due to inhalation of food and vomit; E44.0 Moderate protein-calorie malnutrition; E87.4 Mixed disorder of acid-base balance; G93.1 Anoxic brain damage, not elsewhere classified; E66.9 Obesity, unspecified; F17.200 Nicotine dependence, unspecified, uncomplicated; I10 Essential (primary) hypertension; I46.9 Cardiac arrest, cause unspecified; I44.7 Left bundle-branch block, unspecified; Z68.32 Body mass index [BMI] 32.0-32.9, adult; E87.6 Hypokalemia
CPT/HCPCS: 31500; 36415; 36556; 36600; 51702; 70450; 71045; 71250; 74176; 76700; 80048; 80053; 80061; 80202; 80307; 81001; 82150; 82248; 82805; 82962; 82977; 83036; 83690; 83735; 84100; 84443; 84484; 85007; 85025; 85027; 85610; 85730; 86850; 86900; 86901; 86920; 87040; 87070; 87086; 87205; 92950; 93005; 93306; 94002; 94003; 94640; 94668; 95819; 99291; A4565; A4618; C1887; G0378; J0171; J0696; J1644; J1815; J2250; J2543; J2704; J3480; J3490; J7060; Q9967